=== PATIENT | female | born 1955 | race American Indian/Alaskan Native ===

== ENCOUNTER 2016-08-21 08:23 | Outpatient (CLI) | payer MEDICAID ==
[2016-08-21 08:41] LABS: Hematocrit 37.6 % (30.3-42.9); Hemoglobin 12.3 gm/dl (10.1-14.3)
[2016-08-21 09:00] LABS: BUN/Creatinine Ratio 21.42; Calcium 9.7 mg/dL (8.4-10.2); Chloride 100.1 mmol/L (98-107); Phosphorous 3.8 mg/dL (2.5-4.5); Potassium 4.7 mmol/L (3.6-5.0)
[2016-08-23 15:32] LABS: Vitamin D, 25-OH, Total 34 ng/mL (30-100)
== END 2016-08-21 08:24 | disposition home or self-care (01) ==
LOC: LAB 08:23
PROVIDERS: ATTEND Internal Medicine Nephrology
DX: I12.9 Hypertensive chronic kidney disease with stage 1 through stage 4 chronic kidney disease, or unspecified chronic kidney disease (principal); N18.9 Chronic kidney disease, unspecified; E11.22 Type 2 diabetes mellitus with diabetic chronic kidney disease; R94.4 Abnormal results of kidney function studies; R80.9 Proteinuria, unspecified; E78.5 Hyperlipidemia, unspecified; E55.9 Vitamin D deficiency, unspecified
CPT/HCPCS: 36415; 80048; 82040; 82306; 83970; 84100; 85014; 85018

== ENCOUNTER 2017-01-06 08:26 | Outpatient (CLI) | payer MEDICAID ==
[2017-01-06 08:48] LABS: Hematocrit 35.3 % (30.3-42.9); Hemoglobin 11.3 gm/dl (10.1-14.3)
[2017-01-06 09:30] LABS: Albumin 3.8 g/dL (3.9-5); Calcium 9.2 mg/dL (8.4-10.2); Chloride 103.3 mmol/L (98-107); Potassium 4.1 mmol/L (3.6-5.0)
== END 2017-01-06 08:27 | disposition home or self-care (01) ==
LOC: LAB 08:26
PROVIDERS: ATTEND Internal Medicine Nephrology
DX: I12.9 Hypertensive chronic kidney disease with stage 1 through stage 4 chronic kidney disease, or unspecified chronic kidney disease (principal); N18.3 Chronic kidney disease, stage 3 (moderate); E11.22 Type 2 diabetes mellitus with diabetic chronic kidney disease; R80.9 Proteinuria, unspecified; E78.5 Hyperlipidemia, unspecified; E55.9 Vitamin D deficiency, unspecified
CPT/HCPCS: 36415; 80048; 82040; 82043; 84100; 85014; 85018

== ENCOUNTER 2018-03-03 11:50 | Outpatient (CLI) | payer MEDICAID ==
[2018-03-03 12:21] LABS: Bilirubin,Urine NEG (Negative); Blood,Urine NEG (Negative); Color,Urine Yellow (Yellow); Mucus,Urine FEW /HPF; Protein,Urine <15 mg/dL mg/dL (Negative); Urobilinogen,Urine < 2.0 mg/dL (<2.0)
[2018-03-03 12:25] LABS: Basophils % (Auto) 0.5 % (0.0-1.8); Eosinophils # (Auto) 0.2 K/mm3 (0.0-0.4); Eosinophils % (Auto) 3.6 % (0.0-4.3); Hematocrit 35.1 % (30.3-42.9); Hemoglobin 11.6 gm/dl (10.1-14.3); Lymphocytes # (Auto) 1.5 K/mm3 (1.2-5.4); Lymphocytes % (Auto) 33.7 % (13.4-35.0); Mean Corpuscular HGB Conc 33 % (30-34); Mean Corpuscular Hemoglobin 30 pg (28-32); Mean Corpuscular Volume 90 fl (79-97); Monocytes # (Auto) 0.4 K/mm3 (0.0-0.8); Monocytes % (Auto) 9.3 % (0.0-7.3); Platelet Count 273 K/mm3 (140-440); Red Blood Count 3.89 M/mm3 (3.65-5.03); Red Cell Distribution Width 14.4 % (13.2-15.2)
[2018-03-03 12:27] LABS: Microalbumin/Creatinine Ratio 8.3 ug/mg
[2018-03-03 12:44] LABS: Albumin 3.8 g/dL (3.9-5); Calcium 9.4 mg/dL (8.4-10.2)
== END 2018-03-03 11:51 | disposition home or self-care (01) ==
LOC: LAB 11:50
PROVIDERS: ATTEND Internal Medicine Nephrology
DX: I12.9 Hypertensive chronic kidney disease with stage 1 through stage 4 chronic kidney disease, or unspecified chronic kidney disease (principal); E11.22 Type 2 diabetes mellitus with diabetic chronic kidney disease; N18.3 Chronic kidney disease, stage 3 (moderate); R80.9 Proteinuria, unspecified; E78.5 Hyperlipidemia, unspecified; E55.9 Vitamin D deficiency, unspecified; Z88.8 Allergy status to other drugs, medicaments and biological substances
CPT/HCPCS: 36415; 80048; 81001; 82040; 82043; 83970; 84100; 85025

== ENCOUNTER 2018-12-16 08:22 | Outpatient (CLI) | payer MEDICAID ==
[2018-12-16 08:57] LABS: Bacteria,Urine 1+ /HPF (Negative); Bilirubin,Urine NEG (Negative); Blood,Urine NEG (Negative); Color,Urine Yellow (Yellow); Mucus,Urine FEW /HPF; Protein,Urine <15 mg/dL mg/dL (Negative); Urobilinogen,Urine < 2.0 mg/dL (<2.0)
[2018-12-16 09:18] LABS: Albumin 4.1 g/dL (3.9-5); Calcium 9.4 mg/dL (8.4-10.2)
== END 2018-12-16 08:23 | disposition home or self-care (01) ==
LOC: LAB 08:22
PROVIDERS: ATTEND Internal Medicine Nephrology
DX: I12.9 Hypertensive chronic kidney disease with stage 1 through stage 4 chronic kidney disease, or unspecified chronic kidney disease (principal); E11.22 Type 2 diabetes mellitus with diabetic chronic kidney disease; N18.3 Chronic kidney disease, stage 3 (moderate); E78.5 Hyperlipidemia, unspecified; E55.9 Vitamin D deficiency, unspecified; R80.9 Proteinuria, unspecified
CPT/HCPCS: 36415; 80048; 81001; 82040; 84100; 89050

== ENCOUNTER 2019-02-21 07:43 | Outpatient (CLI) | payer MEDICAID ==
[2019-02-21 08:40] LABS: Calcium 9.7 mg/dL (8.4-10.2)
== END 2019-02-21 07:44 | disposition home or self-care (01) ==
LOC: LAB 07:43
PROVIDERS: ATTEND Internal Medicine Nephrology
DX: I12.9 Hypertensive chronic kidney disease with stage 1 through stage 4 chronic kidney disease, or unspecified chronic kidney disease (principal); E11.22 Type 2 diabetes mellitus with diabetic chronic kidney disease; N18.3 Chronic kidney disease, stage 3 (moderate); R80.9 Proteinuria, unspecified; E78.5 Hyperlipidemia, unspecified; E55.9 Vitamin D deficiency, unspecified
CPT/HCPCS: 36415; 80048; 82040; 82550; 83735; 84100; 89050

== ENCOUNTER 2019-08-24 07:45 | Outpatient (CLI) | payer MEDICAID ==
[2019-08-24 08:32] LABS: Albumin 3.9 g/dL (3.9-5); Calcium 9.8 mg/dL (8.4-10.2)
== END 2019-08-24 07:46 | disposition home or self-care (01) ==
LOC: LAB 07:45
PROVIDERS: ATTEND Internal Medicine
DX: I12.9 Hypertensive chronic kidney disease with stage 1 through stage 4 chronic kidney disease, or unspecified chronic kidney disease (principal); N18.3 Chronic kidney disease, stage 3 (moderate); E11.22 Type 2 diabetes mellitus with diabetic chronic kidney disease; R80.9 Proteinuria, unspecified; E78.5 Hyperlipidemia, unspecified; E55.9 Vitamin D deficiency, unspecified
CPT/HCPCS: 36415; 80048; 82040; 84100

== ENCOUNTER 2019-10-24 06:53 | Outpatient (CLI) | payer MEDICAID ==
[2019-10-24 08:22] LABS: Albumin 4.1 g/dL (3.9-5)
== END 2019-10-24 06:54 | disposition home or self-care (01) ==
LOC: LAB 06:53
PROVIDERS: ATTEND Internal Medicine Nephrology
DX: I12.9 Hypertensive chronic kidney disease with stage 1 through stage 4 chronic kidney disease, or unspecified chronic kidney disease (principal); N18.3 Chronic kidney disease, stage 3 (moderate); E11.22 Type 2 diabetes mellitus with diabetic chronic kidney disease; R80.9 Proteinuria, unspecified; E78.5 Hyperlipidemia, unspecified; E55.9 Vitamin D deficiency, unspecified
CPT/HCPCS: 36415; 80048; 82040; 84100

== ENCOUNTER 2019-11-01 07:15 | Outpatient (CLI) | payer MEDICAID | END 2019-11-01 07:16 | disposition home or self-care (01) | LOC: LAB 07:15 | PROVIDERS: ATTEND Internal Medicine Nephrology | DX: I12.9 Hypertensive chronic kidney disease with stage 1 through stage 4 chronic kidney disease, or unspecified chronic kidney disease (principal); E11.22 Type 2 diabetes mellitus with diabetic chronic kidney disease; N18.3 Chronic kidney disease, stage 3 (moderate); R80.9 Proteinuria, unspecified; E78.5 Hyperlipidemia, unspecified; E55.9 Vitamin D deficiency, unspecified | CPT/HCPCS: 36415 ==

== ENCOUNTER 2020-05-08 15:05 | Outpatient (CLI) | payer MEDICAID ==
[2020-05-08 15:43] LABS: Creatinine,Urine 139.3 mg/dL (0.1-20.0)
[2020-05-08 15:53] LABS: Albumin 4.1 g/dL (3.9-5)
== END 2020-05-08 15:06 | disposition home or self-care (01) ==
LOC: LAB 15:05
PROVIDERS: ATTEND Internal Medicine Nephrology
DX: I12.9 Hypertensive chronic kidney disease with stage 1 through stage 4 chronic kidney disease, or unspecified chronic kidney disease (principal); E11.22 Type 2 diabetes mellitus with diabetic chronic kidney disease; N18.3 Chronic kidney disease, stage 3 (moderate); E78.5 Hyperlipidemia, unspecified
CPT/HCPCS: 36415; 80048; 82040; 82043; 84100

== ENCOUNTER 2020-05-14 16:33 | Emergency (ER) | payer MEDICAID ==
--- NOTE | 2020-05-14 16:48 | Emergency Department Report ---
ED General Adult HPI - General Stated complaint: NAUSEA/DIZZY Time Seen by Provider: 05/14/20 16:37 Source: patient, EMS - History of Present Illness Initial comments: Patient is 64 years old female with history of hypertension diabetes. Patient brought to the emergency room via EMS from her workplace. 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 Patient also complained of nausea but no vomiting. Patient stated that when she woke up this morning she was fine with no symptoms however 2 to 3 hours at work she started feeling dizzy spells. Patient currently complaining of mild headache. She denied any neck pain. Patient denied any chest pain or shortness of breath. Patient also denied any focal weakness numbness or tingling sensation. Stroke scale is 0. - Related Data Allergies Allergy/AdvReac Type Severity Reaction Status Date / Time tetracycline AdvReac Rash Unverified 05/14/20 18:34 ED Review of Systems ROS: Stated complaint: NAUSEA/DIZZY Other details as noted in HPI Comment: All other systems reviewed and negative Constitutional: denies: chills, fever Respiratory: denies: cough, shortness of breath, SOB with exertion, SOB at rest, wheezing Cardiovascular: denies: chest pain, palpitations Gastrointestinal: nausea. denies: abdominal pain, vomiting, diarrhea, constipation, hematemesis, melena, hematochezia Genitourinary: denies: urgency, dysuria Musculoskeletal: denies: back pain Neurological: headache. denies: weakness, numbness, paresthesias, confusion, abnormal gait ED Physical Exam - General General appearance: alert, in no apparent distress - Head Head exam: Present: atraumatic, normocephalic, normal inspection - Eye Eye exam: Present: normal appearance, PERRL - ENT ENT exam: Present: normal exam, normal orophraynx, mucous membranes moist - Neck Neck exam: Present: normal inspection, full ROM. Absent: tenderness, meningismus, lymphadenopathy, thyromegaly - Respiratory Respiratory exam: Present: normal lung sounds bilaterally - Cardiovascular Cardiovascular Exam: Present: regular rate, normal rhythm, normal heart sounds - GI/Abdominal GI/Abdominal exam: Present: soft, normal bowel sounds. Absent: distended, tenderness, guarding, rebound, rigid, organomegaly, mass, bruit, pulsatile mass, hernia - Extremities Exam Extremities exam: Present: normal inspection, full ROM, normal capillary refill. Absent: pedal edema, calf tenderness - Back Exam Back exam: Present: normal inspection, full ROM. Absent: CVA tenderness (R), CVA tenderness (L) - Neurological Exam Neurological exam: Present: alert, oriented X3, CN II-XII intact, normal gait, reflexes normal. Absent: motor sensory deficit - Psychiatric Psychiatric exam: Present: normal mood - Skin Skin exam: Present: warm, intact, normal color ED Course Vital Signs 05/14/20 05/14/20 05/14/20 16:44 17:30 18:31 Temperature 97.8 F Pulse Rate 61 87 Respiratory 14 15 19 Rate Blood Pressure 192/85 181/76 Blood Pressure 200/77 [Right] O2 Sat by Pulse 98 100 100 Oximetry 05/14/20 05/14/20 05/14/20 21:16 21:40 22:09 Temperature Pulse Rate 62 62 60 Respiratory 17 16 16 Rate Blood Pressure Blood Pressure 213/96 206/79 195/78 [Right] O2 Sat by Pulse 100 100 97 Oximetry ED Medical Decision Making - Lab Data Result diagrams: 05/14/20 16:52 05/14/20 16:52 - EKG Data -: EKG Interpreted by Mn EKG shows normal: sinus rhythm Rate: bradycardia - EKG Data Interpretation: no acute changes - Radiology Data Radiology results: report reviewed - Medical Decision Making Patient is 64 years old female with history of hypertension diabetes. Patient brought to the emergency room via EMS from her workplace. 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 Patient also complained of nausea but no vomiting. Patient stated that when she woke up this morning she was fine with no symptoms however 2 to 3 hours at work she started feeling dizzy spells. Patient currently complaining of mild headache. She denied any neck pain. Patient denied any chest pain or shortness of breath. Patient also denied any focal weakness numbness or tingling sensation. Stroke scale is 0. EKG is unremarkable except for sinus bradycardia. CT brain is unremarkable. Labs reviewed and is unremarkable including a negative troponin. D-dimer slightly elevated and given patient history of syncope CTA of the chest is ordered however is negative for pulmonary embolism or any other acute pathology. Patient found to have a consistently elevated systolic blood pressure. Jaylene ent received clonidine with significant improvement in her blood pressure. Patient advised to follow-up with her primary doctor for further management with her blood pressure. Patient discharged home in stable condition, alert oriented x3 no acute distress with no motor or sensory deficit. Patient advised to return to the ER she develop any new symptoms. Critical care attestation.: If time is entered above; I have spent that time in minutes in the direct care of this critically ill patient, excluding procedure time. ED Disposition Clinical Impression: Dizziness, Malignant hypertension Disposition: DC-01 TO HOME OR SELFCARE Is pt being admited?: No Condition: Stable Instructions: Hypertension (ED), Dizziness (ED) Referrals: PRIMARY CARE, [Referring] - 3-5 Days
[2020-05-14 17:03] LABS: Basophils # (Auto) 0.1 K/mm3 (0.0-0.1); Basophils % (Auto) 0.8 % (0.0-1.8); Eosinophils % (Auto) 0.4 % (0.0-4.3); Hematocrit 35.5 % (30.3-42.9); Hemoglobin 11.6 gm/dl (10.1-14.3); Lymphocytes # (Auto) 1.2 K/mm3 (1.2-5.4); Lymphocytes % (Auto) 14.8 % (13.4-35.0); Mean Corpuscular HGB Conc 33 % (30-34); Mean Corpuscular Volume 95 fl (79-97); Monocytes # (Auto) 0.3 K/mm3 (0.0-0.8); Monocytes % (Auto) 3.8 % (0.0-7.3); Platelet Count 219 K/mm3 (140-440); Red Blood Count 3.74 M/mm3 (3.65-5.03); Red Cell Distribution Width 14.1 % (13.2-15.2)
[2020-05-14 17:14] LABS: INR 0.89 (0.87-1.13); Partial Thromboplastin Time 24.6 Sec. (24.2-36.6)
[2020-05-14 17:29] LABS: Alanine Aminotransferase 20 units/L (7-56); BUN/Creatinine Ratio 24; Blood Urea Nitrogen 34 mg/dL (7-17); Calcium 9.5 mg/dL (8.4-10.2); Hemolysis Index 12
--- NOTE | 2020-05-14 17:29 | Cat Scan Report ---
CT HEAD WITHOUT CONTRAST INDICATION / CLINICAL INFORMATION: Syncope. TECHNIQUE: All CT scans at this location are performed using CT dose reduction for ALARA by means of automated e xposure control. COMPARISON: Head CT 12/06/2012 FINDINGS: HEMORRHAGE: No evidence of intracranial hemorrhage or extra-axial fluid collection. EXTRA-AXIAL SPACES: Cortical sulci, sylvian fissures and basilar cisterns have an unremarkable appear ance. VENTRICULAR SYSTEM: The ventricular system is of normal size and configuration. CEREBRAL PARENCHYMA: Mild periventricular and deep white matter sulci reflects the presence of mild m icrovascular ischemic change. 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 This was better demonstrated on previous study. There is no indication of acute or ashraf bacute infarction. MIDLINE SHIFT OR HERNIATION: There is no mass effect. CEREBELLUM / BRAINSTEM: Brainstem and cerebellum have an unremarkable appearance. MIDLINE STRUCTURES:No abnormalities of the pituitary gland or pineal region are identified. INTRACRANIAL VESSELS:No abnormalities are identified on this noncontrast head CT. ORBITS: visualized portions of the orbits have an unremarkable appearance. SOFT TISSUES of HEAD: No significant abnormality. CALVARIUM: Evaluation of bone windows reveals no abnormalities. PARANASAL SINUSES / MASTOID AIR CELLS: Paranasal sinuses are free from inflammatory mucosal disease. Mastoid air cells are normally pneumatized. ADDITIONAL FINDINGS: Ossification of the falx is observed in the anterior interhemispheric fissure. T his is unchanged. IMPRESSION: 1. No acute intracranial abnormality. 2. Mild microvascular ischemic change. 3. 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 This was more clearly demonstrated o n prior head CT 12/06/2012. Signer Name: Bertin Mendoza MD Signed: 05/14/2020 5:25 PM Workstation Name: [id number]
[2020-05-14 17:35] LABS: Bilirubin,Direct < 0.2 mg/dL (0-0.2)
--- NOTE | 2020-05-14 19:10 | XRay Report ---
CHEST 1 VIEW INDICATION / CLINICAL INFORMATION: MAIN. Chest pain FINDINGS: SUPPORT DEVICES: None. HEART / MEDIASTINUM: No significant abnormality. LUNGS / PLEURA: No significant pulmonary or pleural abnormality. No pneumothorax. ADDITIONAL FINDINGS: No significant additional findings. IMPRESSION: 1. No acute findings. Signer Name: Yoan Rodriguez MD Signed: 05/14/2020 7:05 PM Workstation Name: [id number]
[2020-05-14 19:24] LABS: Bilirubin,Urine NEG (Negative); Blood,Urine SM (Negative); Color,Urine Colorless (Yellow); Mucus,Urine FEW /HPF; Protein,Urine <15 mg/dL mg/dL (Negative); Urobilinogen,Urine < 2.0 mg/dL (<2.0); WBC,Urine < 1.0 /HPF (0.0-6.0)
--- NOTE | 2020-05-14 20:17 | Cat Scan Report ---
CTA CHEST WITH IV CONTRAST INDICATION: Acute onset chest pain with dyspnea. Elevated d-dimer TECHNIQUE: Axial CT images were obtained through the chest after injection of 100 mL IV contrast. 3 plane MIP re constructions were produced. All CT scans at this location are performed using CT dose reduction for ALARA by means of automated exposure control. COMPARISON: None available. FINDINGS: PULMONARY ARTERIES: No pulmonary emboli. AORTA AND ARTERIES: No acute abnormality. Mild coronary artery calcification MEDIASTINUM: No mass, lymphadenopathy or other significant abnormality. The heart is mildly enlarged in size without a pericardial effusion. The trachea and main bronchi are patent and normal in caliber . LUNGS: No suspicious consolidation, nodule or mass. No pneumothorax or pleural effusion. ADDITIONAL FINDINGS: None. UPPER ABDOMEN: No acute findings. BONES: No significant osseous abnormality. IMPRESSION: 1. No CT evidence for pulmonary embolism. 2. No acute findings. Mild coronary artery calcification. 3. Mild cardiomegaly. Signer Name: Yoan Rodriguez MD Signed: 05/14/2020 8:12 PM Workstation Name: [id number]
[2020-05-14] MEDS ORDERED: cloNIDine 0.1 MG TAB PO ONE ×2 (20:37→21:36)
[2020-05-14 23:40] VITALS: BP 147/62
== END 2020-05-14 23:42 | disposition home or self-care (01) ==
LOC: ED 16:33
DX: R42 Dizziness and giddiness (principal); I10 Essential (primary) hypertension
CPT/HCPCS: 36415; 70450; 71045; 71275; 80048; 80076; 81001; 82550; 84484; 85025; 85379; 85610; 85730; 93005; 99285; Q9967

== ENCOUNTER 2020-05-15 14:33 | Emergency (ER) | payer MEDICAID ==
--- NOTE | 2020-05-15 16:38 | Emergency Department Report ---
Blank Doc - Documentation Documentation: 64-year-old female that presents with uncontrolled HTN, dizziness, and headache. 1- This initial assessment/diagnostic orders/clinical plan/ treatment(s) is/are subject to change based on pt's health status, clinical progression and re- assessment by fellow clinical providers in the ED. Further treatment and workup at subsequent clinical provers discretion. Patient/guardians urged not to elope from ED as their condition may be serious if not clinically assessed and managed. 2-sent to MAIN ED for further evaluation and treatment 3-cardiac work-up r/o HTN emergency 4- CT head
[2020-05-15] MEDS ORDERED: cloNIDine 0.2 MG TAB ONE (16:40)
[2020-05-15] MEDS ORDERED: cloNIDine 0.2 MG TAB PO ONE (16:41)
[2020-05-15 16:58] LABS: Basophils % (Auto) 0.6 % (0.0-1.8); Eosinophils # (Auto) 0.1 K/mm3 (0.0-0.4); Hematocrit 38.5 % (30.3-42.9); Hemoglobin 12.4 gm/dl (10.1-14.3); Lymphocytes # (Auto) 1.7 K/mm3 (1.2-5.4); Lymphocytes % (Auto) 35.1 % (13.4-35.0); Mean Corpuscular HGB Conc 32 % (30-34); Mean Corpuscular Volume 96 fl (79-97); Monocytes # (Auto) 0.4 K/mm3 (0.0-0.8); Monocytes % (Auto) 8.7 % (0.0-7.3); Platelet Count 234 K/mm3 (140-440); Red Cell Distribution Width 14.4 % (13.2-15.2)
[2020-05-15 17:07] LABS: INR 0.91 (0.87-1.13)
[2020-05-15 17:08] LABS: Partial Thromboplastin Time 22.9 Sec. (24.2-36.6)
--- NOTE | 2020-05-15 17:17 | Cat Scan Report ---
CT head/brain wo con INDICATION / CLINICAL INFORMATION: 64 years Female; headache/dizziness/HTN. TECHNIQUE: Routine CT head without contrast. All CT scans at this location are performed using CT dos e reduction for ALARA by means of automated exposure control. COMPARISON: 05/14/2020 FINDINGS: BRAIN / INTRACRANIAL CONTENTS: No acute hemorrhage, mass effect, midline shift, hydrocephalus, or acu te, large territorial infarct. No chronic infarct or atrophy appreciated. Mild, nonspecific white mat ter disease noted. CRANIOCERVICAL JUNCTION: No significant abnormality. ORBITS: No significant abnormality of visualized orbits. SINUSES / MASTOIDS: Mild mucosal thickening seen in the mastoids. ADDITIONAL FINDINGS: None. IMPRESSION: 1. No focal mass, hemorrhage, hydrocephalus, or acute, large territorial infarct. Signer Name: Cheng Bustos MD, III Signed: 05/15/2020 5:12 PM Workstation Name: [id number]
[2020-05-15 17:20] LABS: Alanine Aminotransferase 26 units/L (7-56); Albumin 3.9 g/dL (3.9-5); BUN/Creatinine Ratio 22; Blood Urea Nitrogen 26 mg/dL (7-17); Calcium 10.2 mg/dL (8.4-10.2); Hemolysis Index 15
--- NOTE | 2020-05-15 17:39 | XRay Report ---
CHEST 2 VIEWS INDICATION / CLINICAL INFORMATION: Chest Pain. COMPARISON: Chest one view from 05/14/2020. FINDINGS: SUPPORT DEVICES: None. HEART / MEDIASTINUM: Stable. LUNGS / PLEURA: No significant pulmonary or pleural abnormality. No pneumothorax. ADDITIONAL FINDINGS: No significant additional changes/findings. IMPRESSION: Stable mild cardiomegaly. No other acute abnormality of the chest. Signer Name: Joseph Chance MD Signed: 05/15/2020 5:34 PM Workstation Name: [id number]
[2020-05-15 21:11] VITALS: BP 185/72
== END 2020-05-16 07:00 | disposition home or self-care (01) ==
LOC: ED 14:33
DX: I10 Essential (primary) hypertension (principal); Z53.21 Procedure and treatment not carried out due to patient leaving prior to being seen by health care provider
CPT/HCPCS: 36415; 70450; 71046; 80053; 84484; 85025; 85610; 85730